=== PATIENT | male | born 1970 | race Hispanic/Latino ===

== ENCOUNTER 2019-05-23 22:52 | Emergency (ER) | payer SELFPAY ==
[2019-05-23] MEDS ORDERED: Ketorolac Tromethamine 30 MG/ML VIAL ONE (23:17)
--- NOTE | 2019-05-23 23:27 | RAD ---
Exam:3 views left ankle HISTORY: Pain COMPARISON: None FINDINGS: No fracture, cortical irregularity or periosteal reaction. Mild soft tissue swelling. There are degenerative changes involving the ankle joint. Osteophyte forma tion is noted IMPRESSION: Chronic degenerative changes. No specific soft tissue swelling
== END 2019-05-23 23:44 | disposition home or self-care (01) ==
LOC: ERS 22:52
DX: M19.072 Primary osteoarthritis, left ankle and foot (principal)
CPT/HCPCS: 96372; J1885

== ENCOUNTER 2024-04-23 10:29 | Emergency (ER) | payer SELFPAY ==
[2024-04-23] MEDS ORDERED: Morphine 4 MG/ML VIAL ONE (11:48)
== END 2024-04-23 12:52 | disposition home or self-care (01) ==
LOC: ERS 10:29
DX: S76.812A Strain of other specified muscles, fascia and tendons at thigh level, left thigh, initial encounter (principal); E11.9 Type 2 diabetes mellitus without complications; I10 Essential (primary) hypertension; E78.00 Pure hypercholesterolemia, unspecified; X50.0XXA Overexertion from strenuous movement or load, initial encounter; Y93.89 Activity, other specified; Z75.8 Other problems related to medical facilities and other health care; Z79.84 Long term (current) use of oral hypoglycemic drugs; Z79.899 Other long term (current) drug therapy
CPT/HCPCS: 96372; 99283; J2272

== ENCOUNTER 2024-04-25 08:05 | Emergency (ER) | payer SELFPAY ==
[2024-04-25] MEDS ORDERED: Orphenadrine Citrate 60 MG/2 ML VIAL ONE (08:46)
[2024-04-25] MEDS ORDERED: Ketorolac Tromethamine 30 MG (1 mL) VIAL ONE (08:46)
== END 2024-04-25 12:03 | disposition home or self-care (01) ==
LOC: ERS 08:05
DX: M54.32 Sciatica, left side (principal); B02.9 Zoster without complications; E11.9 Type 2 diabetes mellitus without complications; I10 Essential (primary) hypertension; Z79.84 Long term (current) use of oral hypoglycemic drugs; Z79.899 Other long term (current) drug therapy
CPT/HCPCS: 96372; J1885; J2360

== ENCOUNTER 2024-06-16 10:58 | Emergency (ER) | payer SELFPAY ==
[2024-06-16] MEDS ORDERED: Acetaminophen 500 MG TAB ONE (12:49)
== END 2024-06-16 13:33 | disposition home or self-care (01) ==
LOC: ERS 10:58
DX: S80.212A Abrasion, left knee, initial encounter (principal); E78.00 Pure hypercholesterolemia, unspecified; B02.9 Zoster without complications; E11.9 Type 2 diabetes mellitus without complications; Z55.6 Problems related to health literacy; Z79.899 Other long term (current) drug therapy; W19.XXXA Unspecified fall, initial encounter
CPT/HCPCS: 99283